=== PATIENT | female | born 1985 | race Caucasian/White ===

== ENCOUNTER 2019-09-07 17:58 | Emergency (ER) | payer OTHER, SELFPAY ==
--- NOTE | ~2019-09-07 | XR_ITS ---
XR chest 2V 09/07/2019 18:37 Indication: Shortness of breath, wheezing. Hypertension. Procedure: 2 view chest Comparison: No prior studies for comparison. Findings: There is left lower lobe airspace disease, compatible with pneumonia. No pleural effusion. Heart size normal. No edema or pneumothorax. No acute osseous abnormality. Impression: 1: Left lower lobe pneumonia. Reviewed, dictated and finalized at location A. Impression: 1: Left lower lobe pneumonia.
--- NOTE | 2019-09-07 18:00 | ECG_ITS ---
Measurements Intervals [place] Rate: 73 P: -6 NC: 195 QRS: 17 QRSD: 88 T: 52 QT: 413 QTc: 458 Interpretive Statements SINUS RHYTHM BORDERLINE ST ABNORMALITY- HIGH LATERAL LEADS BASELINE ARTIFACT- III BORDERLINE ECG Electronically Signed On 09-07-2019 19:28:11 CDT by Basil Maria D.O.
[2019-09-07 18:09] VITALS: BP 126/65; PULSE 97; RESP 18; TEMP 36.7; O2SAT 97
[2019-09-07 18:21] LABS: Basophils Percent Auto 0.5 % (0.2-1.2); Eosinophils Absolute Auto 0.2 K/mm3 (0-0.3); Eosinophils Percent Auto 3.4 % (0-4.4); Hematocrit 26.9 % (37.0-47.0); Hemoglobin 8.8 g/dL (12.0-15.0); Immature Granulocyte Absolute 0.01 K/mm3 (0.00-0.031); Immature Granulocyte Percent A 0.2 % (0-0.5); Lymphocytes Absolute Auto 1.37 K/mm3 (0.9-3.2); Lymphocytes Percent Auto 23.1 % (18.3-44.2); Mean Corpuscular HGB Conc 32.7 g/dl (32-36); Mean Corpuscular Hemoglobin 28.8 pg (26-34); Mean Corpuscular Volume 87.9 fl (80-100); Mean Platelet Volume 10.2 fl (7.4-10.4); Monocytes Absolute Auto 0.3 K/mm3 (0.1-0.6); Monocytes Percent Auto 4.9 % (2.6-8.5); Neutrophils Percent Auto 67.9 % (45.5-73.1); Platelet Count Result 269 k/mm3 (150-375); Red Blood Count 3.06 M/mm3 (4.2-5.4); Red Cell Distribution Width 12.7 % (11.5-14.5); White Blood Count 5.9 K/mm3 (4.5-10.0)
[2019-09-07 18:31] LABS: Blood Urea Nitrogen 74 mg/dL (7-17); Calcium 5.5 mg/dL (8.4-10.2); Carbon Dioxide 21 mmol/L (22-30); Chloride 107 mmol/L (98-107); Estimated CRCL calculation 12 ml/min; Estimated Glomerular Filt Rate 6; Glucose 159 mg/dL (65-105); Sodium 138 mmol/L (137-145)
--- NOTE | 2019-09-07 19:28 | ED.SOB ---
HPI - SOB/Dyspnea General Chief Complaint: Shortness of Breath/Dyspnea Stated Complaint: SOB Time Seen by Provider: 09/07/19 19:03 History of Present Illness HPI Narrative: Patient is a 33-year-old female who presents the ER with shortness of breath. Ongoing for 3 weeks. Worse when she is laying down at night. Originally it was productive cough but now is nonproductive. During the first week for symptoms patient received COVID testing which was negative. She is taking albuterol without improvement. Denies fevers or sweats or chills. No known sick contacts. Patient has end-stage renal disease and is going to receive a port for peritoneal dialysis in the next week. She sees Dr. Lee. No exertional dyspnea. Related Data Allergies Allergy/AdvReac Type Severity Reaction Status Date / Time No Known Allergies Allergy Unverified 09/07/19 18:13 Review of Systems Review of Systems: All systems reviewed & are unremarkable except as noted in HPI and below Constitutional: Constitutional: Denies chills, Denies fever(s) and Denies weakness ENT: Denies nasal congestion and Denies sore throat Cardiovascular: Cardiovascular: Denies chest pain and Denies radiating jaw, neck or arm pain Respiratory: Respiratory: Reports cough, Denies dyspnea and Reports wheezing Gastrointestinal: Gastrointestinal: Denies abdominal pain, Denies nausea and Denies vomiting PMFSH Past Medical History Medical History (Updated 09/07/19 @ 20:22 by Isiah Brewer MD) Diabetes End stage renal disease Hypertension Social History Social History Smoking status: Never smoker Alcohol intake: current Gender identity (if verbalized by the patient): Female Exam Narrative: Exam Narrative: GENERAL: Well-appearing, well-nourished, and in no acute distress. HEAD: Normocephalic, atraumatic. CHEST: Clear to auscultation. No respiratory distress. HEART: Regular rate and rhythm. Normal peripheral pulses.. EXTREMITIES: Normal range of motion. 2+ edema. SKIN: Warm, dry, no rash. NEURO: Alert and oriented x3. PSYCH: Normal mood and affect. Course Course Emergency Course: Discussed case with Dr. Lee. Recommends starting patient on Augmentin 250 mg for treatment of pneumonia though this may indicate a resolving pneumonia from her previous anabiotic treatment. He would also like her to contact the [facility] office to schedule closer follow-up and placement of her dialysis catheter. Patient has been informed of the results and treatment plan and has verbalized understanding. Also discussed patient should not be traveling to the beach that she had previously planned due to need for surgery and COVID risks. Vital Signs Vital signs: Vital Signs Temperature 98.1 F 09/07/19 18:09 Pulse Rate 97 09/07/19 18:09 Respiratory Rate 18 09/07/19 18:09 Blood Pressure 126/65 09/07/19 18:09 Pulse Oximetry 97 09/07/19 18:09 Temperature 98.1 F 09/07/19 18:09 Pulse Rate 73 09/07/19 19:53 Respiratory Rate 21 H 09/07/19 19:53 Blood Pressure 134/74 09/07/19 19:53 Pulse Oximetry 98 09/07/19 19:55 MDM - SOB/Dyspnea Lab Data Result diagrams: 09/07/19 18:13 09/07/19 18:13 Labs: Lab Results 09/07/19 09/07/19 Range/Units 18:13 18:13 WBC 5.9 (4.5-10.0) K/mm3 RBC 3.06 L (4.2-5.4) M/mm3 Hgb 8.8 L (12.0-15.0) g/dL Hct 26.9 L (37.0-47.0) % MCV 87.9 (80-100) fl MCH 28.8 (26-34) pg MCHC 32.7 (32-36) g/dl RDW 12.7 (11.5-14.5) % Plt Count 269 (150-375) k/mm3 MPV 10.2 (7.4-10.4) fl Immature Gran % (Auto) 0.2 (0-0.5) % Neut % (Auto) 67.9 (45.5-73.1) % Lymph % (Auto) 23.1 (18.3-44.2) % [place] % (Auto) 4.9 (2.6-8.5) % Eos % (Auto) 3.4 (0-4.4) % Baso % (Auto) 0.5 (0.2-1.2) % Lymph # (Auto) 1.37 (0.9-3.2) K/mm3 [place] # (Auto) 0.3 (0.1-0.6) K/mm3 Eos # (Auto) 0.2 (0-0.3) K/mm3 Baso # (Auto) 0.0 (0.0-0.1) K/mm3 Abs Immat Gran
[2019-09-07 19:53] VITALS: BP 134/74; PULSE 73; RESP 21; O2SAT 97
[2019-09-07 19:55] VITALS: O2SAT 98
[2019-09-07 20:32] VITALS: BP 132/80; PULSE 74; RESP 18; O2SAT 98
== END 2019-09-07 20:33 | disposition home or self-care (01) ==
PROVIDERS: Emergency Medicine; Emergency Provider Emergency Medicine
DX: J18.9 Pneumonia, unspecified organism (principal); E11.22 Type 2 diabetes mellitus with diabetic chronic kidney disease; I12.0 Hypertensive chronic kidney disease with stage 5 chronic kidney disease or end stage renal disease; N18.6 End stage renal disease
CPT/HCPCS: 36415; 71046; 80048; 85025; 93005; 99284

== ENCOUNTER 2019-11-10 14:11 | Outpatient (CLI) | payer OTHER, SELFPAY ==
--- NOTE | ~2019-11-10 | XR_ITS ---
EXAMINATION: XR abdomen/kub 1V EXAM DATE: 11/10/2019 14:41 INDICATION: Check placement of peritoneal dialysis catheter reportedly poorly functioning. TECHNIQUE: Frontal projection(s) of the abdomen for interpretation. There is no prior study for erlin mancini. FINDINGS: Peritoneal dialysis catheter identified, the line appears intact with coil projecting over the left side of the pelvis. There is moderate amount of colonic stool and gas. No small bowel dilat ion. There are no osseous abnormalities identified. IMPRESSION: Intact peritoneal dialysis catheter. Reviewed, dictated and finalized at location A.
== END 2019-11-10 14:12 | disposition home or self-care (01) ==
LOC: ANHIMG 14:17
PROVIDERS: Visit Provider Internal Medicine Nephrology
DX: N18.6 End stage renal disease (principal)
CPT/HCPCS: 74018

== ENCOUNTER 2019-11-14 01:05 | Emergency (ER) | payer OTHER, SELFPAY ==
--- NOTE | ~2019-11-14 | CT_ITS ---
EXAMINATION: CT abdomen pelvis wo con DATE: 11/14/2019 02:20 INDICATION: Generalized abdominal pain TECHNIQUE: Computed tomography (CT) of the abdomen and pelvis was performed without intravenous contr ast. The dose-length product was 1412.42 mGy-cm. Automated exposure control and iterative reconstruct ion technique were employed. COMPARISON: None. FINDINGS: There is a peritoneal dialysis catheter. Gallbladder is distended and contains gallstones. Cannot exclude cholecystitis. Free fluid in the upper abdomen surrounding the liver extending into th e paracolic gutter and pelvis. Nonobstructive bowel gas pattern. Few scattered colonic diverticula wi thout evidence for diverticulitis. The liver, spleen, pancreas, adrenal glands and kidneys are unremarkable. Mildly prominent retroperit gagnon lymph nodes are likely reactive. Small fat-containing umbilical hernia. Small subpleural nodule s of the right lower lobe, largest measuring 4 mm. IMPRESSION: 1. Distended gallbladder containing stones. Consider cholecystitis in the appropriate clinical settin g. 2: Peritoneal dialysis catheter with ascites. 3: Small right lower lobe subpleural nodules measuring 4 mm or less. Follow-up 12 month interval limi [address] recommended. Reviewed, dictated and finalized at location A. IMPRESSION: 1. Distended gallbladder containing stones. Consider cholecystitis in the appro priate clinical setting. 2: Peritoneal dialysis catheter with ascites. 3: Small right lower lobe subpleural nodules measuring 4 mm or less. Follow-up [address] recommended.
[2019-11-14 01:10] VITALS: BP 184/97; PULSE 91; RESP 18; TEMP 36.3; O2SAT 100
--- NOTE | 2019-11-14 01:31 | ED.ABDPAIN ---
HPI - Abdominal Pain General Chief Complaint: Abdominal Pain Stated Complaint: abd pain Time Seen by Provider: 11/14/19 01:22 History of Present Illness HPI narrative: Severe generalized abdominal pain. She first started having abdominal issues 2 weeks ago. At that time she was consitpated. She was started on lactulose. Originally that seemed to be helping. She is now having pain radiating throughout the entire abdomen. This is associated with nausea and vomiting. She recently started peritoneal dialysis. Related Data Allergies Allergy/AdvReac Type Severity Reaction Status Date / Time No Known Allergies Allergy Unverified 09/07/19 18:13 Review of Systems Review of Systems: All systems reviewed & are unremarkable except as noted in HPI and below Constitutional: Constitutional: Reports chills Cardiovascular: Cardiovascular: Denies chest pain Respiratory: Respiratory: Denies dyspnea Gastrointestinal: Gastrointestinal: Reports abdominal pain, Reports bloating, Reports constipation, Reports diarrhea, Reports nausea and Reports vomiting Neurologic: Denies confusion [facility] Past Medical History Medical History (Updated 11/14/19 @ 04:03 by Palomo Springer MD) Diabetes End stage renal disease Hypertension Social History Social History Smoking status: Never smoker Alcohol intake: current Gender identity (if verbalized by the patient): Female Exam Const: General: alert and ill appearing acutely and chronically Nutritional Appearance: obese morbidly obese Orientation/consciousness: patient oriented x3 Other: mild distress HENMT: Head: normal to inspection Resp: Effort & Inspection: normal respiratory effort Auscultation: clear to auscultation bilaterally Cardio: Rate: regular rate Rhythm: regular rhythm GI: Inspection: distended GI Palp: Yes Tenderness to palpation present (GI) (generalized), Yes Guarding due to palpation present (GI) and No Rebound tenderness present Neuro: General: patient oriented x3 and moves all extremities Speech: normal speech Course Vital Signs Vital signs: Vital Signs Temperature 36.3 C L 11/14/19 01:10 Pulse Rate 91 11/14/19 01:10 Respiratory Rate 18 11/14/19 01:10 Blood Pressure 184/97 H 11/14/19 01:10 Pulse Oximetry 100 11/14/19 01:10 Temperature 36.6 C 11/14/19 03:37 Pulse Rate 84 11/14/19 03:37 Respiratory Rate 18 11/14/19 03:37 Blood Pressure 148/86 H 11/14/19 03:37 Pulse Oximetry 98 11/14/19 03:37 MDM - Abdominal Pain MDM Narrative Medical decision making narrative: Initially hypoglycemic. Given D50. CT concerning for acute cholecystitis. Case discussed with Dr. Martínez. He recommends transfering her due to the recent peritoneal dialysis catheter placement. Transfer arranged to [facility]. Differential Diagnosis Differential diagnosis: Likely abdominal pain, calculus of kidney and small bowel obstruction Medical Records Attestation: I reviewed the patient's medical records. Lab Data Attestation: I reviewed the patient's lab results. Result diagrams: 11/14/19 01:41 11/14/19 01:41 Labs: Lab Results 11/14/19 11/14/19 11/14/19 Range/Units 01:41 01:41 01:41 WBC 11.5 H (4.5-10.0) K/mm3 RBC 4.08 L (4.2-5.4) M/mm3 Hgb 11.6 L (12.0-15.0) g/dL Hct 36.2 L (37.0-47.0) % MCV 88.7 (80-100) fl MCH 28.4 (26-34) pg MCHC 32.0 (32-36) g/dl RDW 13.7 (11.5-14.5) % Plt Count 298 (150-375) k/mm3 MPV 9.7 (7.4-10.4) fl Immature Gran % (Auto) 0.3 (0-0.5) % Neut % (Auto) 71.0 (45.5-73.1) % Lymph % (Auto) 22.1 (18.3-44.2) % [place] % (Auto) 4.8 (2.6-8.5) % Eos % (Auto) 1.4 (0-4.4) % Baso % (Auto) 0.4 (0.2-1.2) % Lymph # (Auto) 2.53 (0.9-3.2) K/mm3 [place] # (Auto) 0.6 (0.1-0.6) K/mm3 Eos # (Auto) 0.2 (0-0.3) K/mm3 Baso # (Auto) 0.1 (0.0-0.1) K/mm3 Abs Immat Gran (auto) 0.04 H (0.00-0.031) K/mm3 Absolute Neuts (au
[2019-11-14 01:44] LABS: Glucose Point of Care 47 (65-105)
[2019-11-14] MEDS: DEXTROSE 50% 25 GM/50 ML SYRINGE IV PUSH (01:48)
[2019-11-14 01:53] LABS: Basophils Absolute Auto 0.1 K/mm3 (0.0-0.1); Basophils Percent Auto 0.4 % (0.2-1.2); Eosinophils Absolute Auto 0.2 K/mm3 (0-0.3); Eosinophils Percent Auto 1.4 % (0-4.4); Hematocrit 36.2 % (37.0-47.0); Hemoglobin 11.6 g/dL (12.0-15.0); Immature Granulocyte Absolute 0.04 K/mm3 (0.00-0.031); Immature Granulocyte Percent A 0.3 % (0-0.5); Lymphocytes Absolute Auto 2.53 K/mm3 (0.9-3.2); Lymphocytes Percent Auto 22.1 % (18.3-44.2); Mean Corpuscular Hemoglobin 28.4 pg (26-34); Mean Corpuscular Volume 88.7 fl (80-100); Mean Platelet Volume 9.7 fl (7.4-10.4); Monocytes Absolute Auto 0.6 K/mm3 (0.1-0.6); Monocytes Percent Auto 4.8 % (2.6-8.5); Neutrophils Absolute Auto 8.1 K/mm3 (1.3-6.7); Platelet Count Result 298 k/mm3 (150-375); Red Blood Count 4.08 M/mm3 (4.2-5.4); Red Cell Distribution Width 13.7 % (11.5-14.5); White Blood Count 11.5 K/mm3 (4.5-10.0)
[2019-11-14 02:15] LABS: Alanine Aminotransferase 26 U/L (4-35); Albumin Level 3.9 g/dL (3.5-5.1); Alkaline Phosphatase 74 U/L (38-126); Anion Gap 9 mmol/L (8-16); Aspartate Amino Transferase 24 U/L (14-36); Bilirubin,Total 0.3 mg/dL (0.2-1.3); Blood Urea Nitrogen 52 mg/dL (7-17); Calcium 7.2 mg/dL (8.4-10.2); Carbon Dioxide 28 mmol/L (22-30); Chloride 102 mmol/L (98-107); Estimated Glomerular Filt Rate 8; Glucose 53 mg/dL (65-105); Lipase 89 U/L (23-300); Potassium 3.5 mmol/L (3.4-5.0); Sodium 139 mmol/L (137-145)
[2019-11-14 02:31] LABS: Glucose Point of Care 88 (65-105)
[2019-11-14 03:37] VITALS: BP 148/86; PULSE 84; RESP 18; TEMP 36.6; O2SAT 98
[2019-11-14] MEDS: MORPHINE SULFATE 4 MG/ML INJ IV PUSH (03:53)
--- NOTE | 2019-11-14 05:25 | PC.NURSE ---
called [facility] to transport patient. ETA [phone]
[2019-11-14 07:16] VITALS: BP 155/64; PULSE 85; RESP 18; O2SAT 100
[2019-11-14 08:48] VITALS: BP 163/84; PULSE 89; RESP 20; O2SAT 99
--- NOTE | 2019-11-14 09:13 | PC.NURSE ---
Report given to [facility], patient transported to [facility] at this time.
== END 2019-11-14 09:28 | disposition short-term general hospital (02) ==
PROVIDERS: Emergency Provider Emergency Medicine
DX: K81.0 Acute cholecystitis (principal); I12.0 Hypertensive chronic kidney disease with stage 5 chronic kidney disease or end stage renal disease; E11.22 Type 2 diabetes mellitus with diabetic chronic kidney disease; N18.6 End stage renal disease; Z99.2 Dependence on renal dialysis
CPT/HCPCS: 36415; 74176; 80053; 83690; 85025; 96365; 96375; 99285; J2270; J2543; J3010